=== PATIENT | female | born 1935 | race Caucasian/White ===

== ENCOUNTER 2017-12-31 16:44 | Inpatient (IN) | payer MEDICARE ==
[~2017-12-31] VITALS: Ht 172.7 cm; Wt 54.3 kg
[~2017-12-31 16:44] MED LIST: ALBU2.5V10 IH; ASPI-611 PO; CARV3.1289 PO; FOLI0.8T7 PO; FOLI1TAB16 PO; FURO40TA4 PO; INSU100V11 SQ; ISOS30TA6 PO; LEVO50TA PO; PANT-47 PO
[2017-12-31] MEDS ORDERED: ipratropium/albuterol 3ml nebule NEB ONE (17:15)
[2017-12-31] MEDS ORDERED: HYDROcodone/acetaminophen 10/325mg tab PO PRN (17:45)
[2017-12-31] MEDS ORDERED: diphenhydrAMINE 25mg capsule PO PRN (17:45)
[2017-12-31] MEDS ORDERED: HYDROcodone/acetaminophen 5mg/325mg tablet PO PRN (17:45)
[2017-12-31] MEDS ORDERED: glucagon, human recombinant 1mg kit SUBCUT PRN (17:50)
[2017-12-31] MEDS ORDERED: MESSAGE TO PHARMACY PO ONE (17:50)
[2017-12-31] MEDS ORDERED: dextrose 50%-water 50ml dispensing syringe IV PRN ×2 (17:50)
[2017-12-31] MEDS ORDERED: dextrose ORAL solution 15 GM/59 ML bottle PO PRN (17:50)
[2017-12-31 17:53] LABS: BASOPHILS % (AUTO) 0.1 % (0-1); EOSINOPHILS # (AUTO) 0.4 X10'3 (0-0.9); EOSINOPHILS % (AUTO) 1.5 % (0-6); HEMATOCRIT 32.1 % (35.0-45.0); HEMOGLOBIN 10.8 g/dl (12.0-16.0); LYMPHOCYTES # (AUTO) 0.4 X10'3 (1.1-4.8); LYMPHOCYTES % (AUTO) 1.7 % (21-51); MEAN CORPUSCULAR HEMOGLOBIN 31.8 PG (27.0-31.0); MEAN CORPUSCULAR HGB CONC 33.7 % (33.0-36.5); MEAN CORPUSCULAR VOLUME 94.4 FL (78-98); MEAN PLATELET VOLUME 9.7 FL (7.4-10.4); MONOCYTES # (AUTO) 0.6 X10'3 (0-0.9); MONOCYTES % (AUTO) 2.5 % (2-12); NEUTROPHILS # (AUTO) 22.4 X10'3 (1.8-7.7); NEUTROPHILS % (AUTO) 94.2 % (42-75); PLATELET COUNT 124 X10'3 (140-440); RED CELL DISTRIBUTION WIDTH 14.6 % (11.5-14.5); WHITE BLOOD COUNT 23.8 X10'3 (4.5-11.0)
[2017-12-31 18:12] LABS: ALANINE AMINOTRANSFERASE 40 U/L (12-78); ALBUMIN 2.9 G/DL (3.4-5.0); ALBUMIN/GLOBULIN RATIO 0.9 (1.1-1.5); ALKALINE PHOSPHATASE 94 IU/L (46-116); ANION GAP 12 (8-16); ASPARTATE AMINO TRANSFERASE 24 U/L (10-37); BILIRUBIN,TOTAL 0.7 MG/DL (0.1-1.0); BLOOD UREA NITROGEN 97 MG/DL (7-18); BUN/CREATININE RATIO 28.2 (6.6-38.0); CALCIUM 8.4 MG/DL (8.5-10.1); CHLORIDE 96 MMOL/L (99-107); CREATININE 3.44 MG/DL (0.40-0.90); GLUCOSE 433 MG/DL (70-104); MAGNESIUM 1.9 MG/DL (1.5-2.4); POTASSIUM 5.3 MMOL/L (3.5-5.1); SODIUM 134 MMOL/L (135-145); TOTAL CARBON DIOXIDE 26.1 MMOL/L (24-32); TOTAL PROTEIN 6.3 G/DL (6.4-8.2); eGFR 13 ML/MIN
[2017-12-31 18:16] LABS: HEMOGLOBIN A1C 8.1 % (4.5-6.2)
[2017-12-31] MEDS: docusate sod 100mg capsule PO SCH (19:29)
[2017-12-31] MEDS: carVEDilol 3.125mg tablet PO SCH (19:30)
[2017-12-31] MEDS: heparin, porcine 5000 units/ml vial SQ SCH (19:30)
[2017-12-31] MEDS: linezolid 600mg/300ml PREMIX 300 ML IV SCH (19:31)
[2017-12-31] MEDS: insulin glargine (Lantus) pen - multi-dose SQ SCH (20:14)
[2017-12-31] MEDS: furosemide 40mg tablet PO SCH (20:17)
[2017-12-31] MEDS ORDERED: BUDE10.22 (21:34)
[2017-12-31] MEDS ORDERED: ALBU18HF2 (21:34)
[2018-01-01] MEDS: insulin Lispro (HumaLOG) vial - multi-dose SQ SCH ×2 (07:21→13:28)
[2018-01-01 07:50] VITALS: BP 119/78
[2018-01-01] MEDS: carVEDilol 3.125mg tablet PO SCH ×2 (08:00→21:00)
[2018-01-01] MEDS ORDERED: levoFLOXACIN-Levaquin 250mg/D5 50 ML IV SCH (08:00)
[2018-01-01 08:48] LABS: BASOPHILS % (AUTO) 0 % (0-1); EOSINOPHILS % (AUTO) 0 % (0-6); HEMATOCRIT 31.4 % (35.0-45.0); HEMOGLOBIN 10.6 g/dl (12.0-16.0); LYMPHOCYTES # (AUTO) 1.2 X10'3 (1.1-4.8); LYMPHOCYTES % (AUTO) 7.2 % (21-51); MEAN CORPUSCULAR HEMOGLOBIN 31.9 PG (27.0-31.0); MEAN CORPUSCULAR HGB CONC 33.9 % (33.0-36.5); MEAN CORPUSCULAR VOLUME 93.8 FL (78-98); MEAN PLATELET VOLUME 10.1 FL (7.4-10.4); MONOCYTES # (AUTO) 0.9 X10'3 (0-0.9); MONOCYTES % (AUTO) 5.7 % (2-12); NEUTROPHILS # (AUTO) 14.2 X10'3 (1.8-7.7); NEUTROPHILS % (AUTO) 87.1 % (42-75); PLATELET COUNT 145 X10'3 (140-440); RED BLOOD COUNT 3.34 X10'6 (4.20-5.60); RED CELL DISTRIBUTION WIDTH 14.5 % (11.5-14.5); WHITE BLOOD COUNT 16.3 X10'3 (4.5-11.0)
[2018-01-01 09:03] LABS: ALBUMIN 2.7 G/DL (3.4-5.0); ANION GAP 12 (8-16); BLOOD UREA NITROGEN 116 MG/DL (7-18); BUN/CREATININE RATIO 28.9 (6.6-38.0); CALCIUM 8.2 MG/DL (8.5-10.1); CHLORIDE 97 MMOL/L (99-107); CREATININE 4.01 MG/DL (0.40-0.90); GLUCOSE 330 MG/DL (70-104); PHOSPHORUS 7.1 MG/DL (2.3-4.5); POTASSIUM 4.7 MMOL/L (3.5-5.1); SODIUM 137 MMOL/L (135-145); TOTAL CARBON DIOXIDE 27.7 MMOL/L (24-32); eGFR 11 ML/MIN
[2018-01-01 09:06] LABS: ANISOCYTOSIS 1+; PLATELET ESTIMATE NORMAL; TOTAL CELLS COUNTED 100
[2018-01-01] MEDS: levoTHYROXINE 25mcg tablet PO SCH (09:33)
[2018-01-01] MEDS: aspirin 81mg tablet.DR PO SCH (09:34)
[2018-01-01] MEDS: docusate sod 100mg capsule PO SCH ×2 (09:34→20:59)
[2018-01-01] MEDS: folic acid 1mg tablet PO SCH (09:35)
[2018-01-01] MEDS: pantoprazole 40mg Tablet.DR PO SCH (09:35)
[2018-01-01] MEDS: furosemide 40mg tablet PO SCH ×3 (09:36→21:02)
[2018-01-01] MEDS ORDERED: normal saline 1000ml 250 ML IV PRN (09:37)
[2018-01-01] MEDS: heparin, porcine 5000 units/ml vial SQ SCH ×2 (09:39→21:00)
[2018-01-01] MEDS ORDERED: LIDOcaine 1% (10mg/ml) 2ml vial SQ ONE (09:40)
[2018-01-01] MEDS ORDERED: heparin 1,000 units/ml 10ml inj IV ONE (09:40)
[2018-01-01] MEDS ORDERED: epoetin 20,000 units/ml inj IV ONE (09:40)
[2018-01-01] MEDS: isosorbide mononitrate 30mg tab.SR.24H PO SCH (09:43)
[2018-01-01] MEDS: folic acid/vitamin B complex w/vitamin C 0.8mg tablet PO SCH (09:43)
[2018-01-01] MEDS: linezolid 600mg/300ml PREMIX 300 ML IV SCH (09:49)
[2018-01-01] MEDS ORDERED: albuterol 2.5 MG/3 ML nebule NEB PRN (12:55)
[2018-01-01] MEDS ORDERED: albuterol 2.5 MG/3 ML nebule NEB SCH (13:00)
[2018-01-01] MEDS ORDERED: vancomycin/NS 1 GM ADD-VANTAGE 250 ML IV PRN (14:20)
[2018-01-01] MEDS: albuterol 2.5 MG/3 ML nebule NEB SCH ×2 (14:37→20:30)
[2018-01-01 15:00] VITALS: BP 104/41
[2018-01-01] MEDS ORDERED: vancomycin/NS 1 GM ADD-VANTAGE 250 ML IV ONE (16:00)
[2018-01-01] MEDS: dextrose ORAL solution 15 GM/59 ML bottle PO PRN (17:35)
[2018-01-01 18:00] VITALS: BP 120/49
[2018-01-01] MEDS: piperacillin-tazo 2.25gm/50ml 50 ML IV SCH (20:58)
[2018-01-01] MEDS: lactobacillus rhamnosus 10,000 MMU CELLS/CAPSULE PO SCH (20:59)
[2018-01-01] MEDS: linezolid 600mg tablet PO SCH (21:02)
[2018-01-01] MEDS: insulin glargine (Lantus) pen - multi-dose SQ SCH (21:22)
[2018-01-01 22:00] VITALS: BP 130/40
[2018-01-02] VITALS (8 sets, daily range): BP systolic 120–149; BP diastolic 30–53
[2018-01-02] MEDS: albuterol 2.5 MG/3 ML nebule NEB SCH ×4 (01:51→20:36)
[2018-01-02] MEDS ORDERED: VANCOMYCIN LEVEL IV SCH (03:00)
[2018-01-02] MEDS ORDERED: nitroGLYCERIN 0.4mg SUBLingual tab SL PRN (03:55)
[2018-01-02] MEDS: piperacillin-tazo 2.25gm/50ml 50 ML IV SCH ×4 (04:15→19:31)
[2018-01-02 05:32] LABS: BASOPHILS % (AUTO) 0.1 % (0-1); EOSINOPHILS # (AUTO) 0.2 X10'3 (0-0.9); EOSINOPHILS % (AUTO) 1.5 % (0-6); HEMATOCRIT 30.4 % (35.0-45.0); HEMOGLOBIN 10.2 g/dl (12.0-16.0); LYMPHOCYTES # (AUTO) 1.1 X10'3 (1.1-4.8); LYMPHOCYTES % (AUTO) 7.5 % (21-51); MEAN CORPUSCULAR HGB CONC 33.6 % (33.0-36.5); MEAN CORPUSCULAR VOLUME 95.3 FL (78-98); MEAN PLATELET VOLUME 9.8 FL (7.4-10.4); MONOCYTES # (AUTO) 1.5 X10'3 (0-0.9); MONOCYTES % (AUTO) 9.5 % (2-12); NEUTROPHILS # (AUTO) 12.5 X10'3 (1.8-7.7); NEUTROPHILS % (AUTO) 81.4 % (42-75); PLATELET COUNT 132 X10'3 (140-440); RED BLOOD COUNT 3.19 X10'6 (4.20-5.60); RED CELL DISTRIBUTION WIDTH 14.3 % (11.5-14.5); WHITE BLOOD COUNT 15.3 X10'3 (4.5-11.0)
[2018-01-02 06:02] LABS: PLATELET ESTIMATE NORMAL; TOTAL CELLS COUNTED 100
[2018-01-02 06:03] LABS: ANISOCYTOSIS 1+; TOXIC GRANULATION 1+
[2018-01-02 06:21] LABS: ALBUMIN 2.5 G/DL (3.4-5.0); ANION GAP 10 (8-16); BLOOD UREA NITROGEN 42 MG/DL (7-18); BUN/CREATININE RATIO 19.3 (6.6-38.0); CALCIUM 7.8 MG/DL (8.5-10.1); CHLORIDE 99 MMOL/L (99-107); CREATININE 2.18 MG/DL (0.40-0.90); GLUCOSE 206 MG/DL (70-104); MAGNESIUM 1.8 MG/DL (1.5-2.4); PHOSPHORUS 3.5 MG/DL (2.3-4.5); POTASSIUM 4.4 MMOL/L (3.5-5.1); SODIUM 137 MMOL/L (135-145); TOTAL CARBON DIOXIDE 28.5 MMOL/L (24-32); eGFR 22 ML/MIN
[2018-01-02] MEDS: docusate sod 100mg capsule PO SCH ×2 (08:50→19:31)
[2018-01-02] MEDS: pantoprazole 40mg Tablet.DR PO SCH (08:50)
[2018-01-02] MEDS: folic acid 1mg tablet PO SCH (08:50)
[2018-01-02] MEDS: folic acid/vitamin B complex w/vitamin C 0.8mg tablet PO SCH (08:50)
[2018-01-02] MEDS: linezolid 600mg tablet PO SCH ×2 (08:51→19:31)
[2018-01-02] MEDS: lactobacillus rhamnosus 10,000 MMU CELLS/CAPSULE PO SCH ×2 (08:51→19:31)
[2018-01-02] MEDS: levoTHYROXINE 25mcg tablet PO SCH (08:51)
[2018-01-02] MEDS: aspirin 81mg tablet.DR PO SCH (08:52)
[2018-01-02] MEDS: heparin, porcine 5000 units/ml vial SQ SCH ×2 (08:52→19:30)
[2018-01-02] MEDS: carVEDilol 3.125mg tablet PO SCH ×2 (08:54→19:31)
[2018-01-02] MEDS: furosemide 40mg tablet PO SCH ×3 (08:54→21:00)
[2018-01-02] MEDS: isosorbide mononitrate 30mg tab.SR.24H PO SCH (08:55)
[2018-01-02] MEDS: budesonide 0.5mg/2ml UD nebule IH SCH ×2 (08:56→20:37)
[2018-01-02] MEDS: ondansetron/PF 4mg/2ml inj IV PRN (10:18)
[2018-01-02] MEDS: insulin Lispro (HumaLOG) vial - multi-dose SQ SCH ×2 (11:56→19:04)
[2018-01-02] MEDS: insulin glargine (Lantus) pen - multi-dose SQ SCH (21:00)
[2018-01-03] MEDS: piperacillin-tazo 2.25gm/50ml 50 ML IV SCH ×4 (02:16→19:52)
[2018-01-03 03:00] VITALS: BP 108/22
[2018-01-03] MEDS: albuterol 2.5 MG/3 ML nebule NEB SCH ×4 (03:10→22:41)
[2018-01-03 05:22] LABS: BASOPHILS % (AUTO) 0.1 % (0-1); EOSINOPHILS # (AUTO) 0.2 X10'3 (0-0.9); EOSINOPHILS % (AUTO) 1.9 % (0-6); HEMATOCRIT 30.7 % (35.0-45.0); HEMOGLOBIN 10.4 g/dl (12.0-16.0); LYMPHOCYTES # (AUTO) 1.7 X10'3 (1.1-4.8); MEAN CORPUSCULAR HGB CONC 33.8 % (33.0-36.5); MEAN CORPUSCULAR VOLUME 94.7 FL (78-98); MEAN PLATELET VOLUME 9.8 FL (7.4-10.4); MONOCYTES # (AUTO) 1.3 X10'3 (0-0.9); MONOCYTES % (AUTO) 11.1 % (2-12); NEUTROPHILS # (AUTO) 8.1 X10'3 (1.8-7.7); NEUTROPHILS % (AUTO) 71.9 % (42-75); PLATELET COUNT 146 X10'3 (140-440); RED BLOOD COUNT 3.24 X10'6 (4.20-5.60); RED CELL DISTRIBUTION WIDTH 14.3 % (11.5-14.5); WHITE BLOOD COUNT 11.3 X10'3 (4.5-11.0)
[2018-01-03 06:14] LABS: PLATELET ESTIMATE NORMAL; TOTAL CELLS COUNTED 100
[2018-01-03 06:15] LABS: ANISOCYTOSIS 1+; LARGE PLATELETS FEW
[2018-01-03 06:25] LABS: ALBUMIN 2.3 G/DL (3.4-5.0); ANION GAP 12 (8-16); BLOOD UREA NITROGEN 51 MG/DL (7-18); BUN/CREATININE RATIO 16.6 (6.6-38.0); CALCIUM 7.9 MG/DL (8.5-10.1); CHLORIDE 99 MMOL/L (99-107); CREATININE 3.08 MG/DL (0.40-0.90); GLUCOSE 122 MG/DL (70-104); MAGNESIUM 1.8 MG/DL (1.5-2.4); PHOSPHORUS 4.8 MG/DL (2.3-4.5); POTASSIUM 4.1 MMOL/L (3.5-5.1); SODIUM 139 MMOL/L (135-145); TOTAL CARBON DIOXIDE 27.8 MMOL/L (24-32); eGFR 15 ML/MIN
[2018-01-03 07:00] VITALS: BP 98/45
[2018-01-03] MEDS: docusate sod 100mg capsule PO SCH ×2 (07:20→20:00)
[2018-01-03] MEDS: aspirin 81mg tablet.DR PO SCH (07:20)
[2018-01-03] MEDS: linezolid 600mg tablet PO SCH ×2 (07:20→19:52)
[2018-01-03] MEDS: levoTHYROXINE 25mcg tablet PO SCH (07:20)
[2018-01-03] MEDS: lactobacillus rhamnosus 10,000 MMU CELLS/CAPSULE PO SCH ×2 (07:20→19:52)
[2018-01-03] MEDS: folic acid 1mg tablet PO SCH (07:20)
[2018-01-03] MEDS: folic acid/vitamin B complex w/vitamin C 0.8mg tablet PO SCH (07:20)
[2018-01-03] MEDS: isosorbide mononitrate 30mg tab.SR.24H PO SCH (07:20)
[2018-01-03] MEDS: furosemide 40mg tablet PO SCH ×3 (07:20→21:00)
[2018-01-03] MEDS: pantoprazole 40mg Tablet.DR PO SCH (07:20)
[2018-01-03] MEDS: carVEDilol 3.125mg tablet PO SCH ×2 (07:20→19:52)
[2018-01-03] MEDS: heparin, porcine 5000 units/ml vial SQ SCH ×2 (07:21→20:00)
[2018-01-03] MEDS: budesonide 0.5mg/2ml UD nebule IH SCH ×2 (10:37→22:41)
[2018-01-03 11:00] VITALS: BP 136/39
[2018-01-03] MEDS: insulin Lispro (HumaLOG) vial - multi-dose SQ SCH ×2 (13:21→18:29)
[2018-01-03 15:00] VITALS: BP 131/37
[2018-01-03] MEDS ORDERED: normal saline 1000ml 250 ML IV PRN (18:03)
[2018-01-03] MEDS ORDERED: epoetin 20,000 units/ml inj IV ONE (18:05)
[2018-01-03] MEDS ORDERED: heparin 1,000 units/ml 10ml inj IV ONE (18:05)
[2018-01-03] MEDS ORDERED: LIDOcaine 1% (10mg/ml) 2ml vial SQ ONE (18:05)
[2018-01-03 19:00] VITALS: BP 120/44
[2018-01-03] MEDS: insulin glargine (Lantus) pen - multi-dose SQ SCH (20:56)
[2018-01-03 23:00] VITALS: BP 131/38
[2018-01-04] MEDS: albuterol 2.5 MG/3 ML nebule NEB SCH ×4 (02:38→21:30)
[2018-01-04] MEDS: piperacillin-tazo 2.25gm/50ml 50 ML IV SCH ×4 (02:39→21:57)
[2018-01-04 03:00] VITALS: BP 134/51
[2018-01-04] MEDS: ondansetron/PF 4mg/2ml inj IV PRN ×3 (03:19→21:52)
[2018-01-04 05:49] LABS: BASOPHILS % (AUTO) 0 % (0-1); EOSINOPHILS # (AUTO) 0.2 X10'3 (0-0.9); EOSINOPHILS % (AUTO) 1.7 % (0-6); HEMATOCRIT 29.4 % (35.0-45.0); HEMOGLOBIN 10.1 g/dl (12.0-16.0); LYMPHOCYTES # (AUTO) 1.1 X10'3 (1.1-4.8); LYMPHOCYTES % (AUTO) 10.3 % (21-51); MEAN CORPUSCULAR HEMOGLOBIN 32.5 PG (27.0-31.0); MEAN CORPUSCULAR HGB CONC 34.4 % (33.0-36.5); MEAN CORPUSCULAR VOLUME 94.5 FL (78-98); MEAN PLATELET VOLUME 9.7 FL (7.4-10.4); MONOCYTES # (AUTO) 1.3 X10'3 (0-0.9); MONOCYTES % (AUTO) 11.9 % (2-12); NEUTROPHILS # (AUTO) 8.4 X10'3 (1.8-7.7); NEUTROPHILS % (AUTO) 76.1 % (42-75); PLATELET COUNT 138 X10'3 (140-440); RED BLOOD COUNT 3.11 X10'6 (4.20-5.60); RED CELL DISTRIBUTION WIDTH 14.3 % (11.5-14.5)
[2018-01-04 06:00] VITALS: BP 126/45
[2018-01-04 06:11] LABS: ALBUMIN 2.2 G/DL (3.4-5.0); ANION GAP 14 (8-16); BLOOD UREA NITROGEN 58 MG/DL (7-18); BUN/CREATININE RATIO 15.1 (6.6-38.0); CALCIUM 8.1 MG/DL (8.5-10.1); CHLORIDE 97 MMOL/L (99-107); CREATININE 3.84 MG/DL (0.40-0.90); GLUCOSE 136 MG/DL (70-104); MAGNESIUM 1.8 MG/DL (1.5-2.4); PHOSPHORUS 5.5 MG/DL (2.3-4.5); SODIUM 137 MMOL/L (135-145); TOTAL CARBON DIOXIDE 26.2 MMOL/L (24-32); eGFR 11 ML/MIN
[2018-01-04] MEDS: docusate sod 100mg capsule PO SCH ×2 (07:13→21:59)
[2018-01-04] MEDS: linezolid 600mg tablet PO SCH ×2 (07:13→21:58)
[2018-01-04] MEDS: heparin, porcine 5000 units/ml vial SQ SCH ×2 (07:13→21:58)
[2018-01-04] MEDS: aspirin 81mg tablet.DR PO SCH (07:14)
[2018-01-04] MEDS: lactobacillus rhamnosus 10,000 MMU CELLS/CAPSULE PO SCH ×2 (07:14→21:59)
[2018-01-04] MEDS: pantoprazole 40mg Tablet.DR PO SCH (07:14)
[2018-01-04] MEDS: carVEDilol 3.125mg tablet PO SCH ×2 (07:14→21:59)
[2018-01-04] MEDS: folic acid/vitamin B complex w/vitamin C 0.8mg tablet PO SCH (07:14)
[2018-01-04] MEDS: folic acid 1mg tablet PO SCH (07:14)
[2018-01-04] MEDS: isosorbide mononitrate 30mg tab.SR.24H PO SCH (07:14)
[2018-01-04] MEDS: levoTHYROXINE 25mcg tablet PO SCH (07:14)
[2018-01-04] MEDS: furosemide 40mg tablet PO SCH ×3 (07:14→22:49)
[2018-01-04] MEDS: budesonide 0.5mg/2ml UD nebule IH SCH ×2 (07:56→21:29)
[2018-01-04] MEDS: insulin Lispro (HumaLOG) vial - multi-dose SQ SCH (08:15)
[2018-01-04] MEDS ORDERED: heparin 1,000 units/ml 10ml inj IV ONE (09:15)
[2018-01-04] MEDS ORDERED: normal saline 1000ml 250 ML IV PRN (09:15)
[2018-01-04] MEDS ORDERED: epoetin 20,000 units/ml inj IV ONE (09:15)
[2018-01-04] MEDS ORDERED: LIDOcaine 1% (10mg/ml) 2ml vial SQ ONE (09:55)
[2018-01-04 11:00] VITALS: BP 129/37
[2018-01-04 15:00] VITALS: BP 129/44
[2018-01-04 19:00] VITALS: BP 130/43
[2018-01-04] MEDS: insulin glargine (Lantus) pen - multi-dose SQ SCH (21:51)
[2018-01-04 23:00] VITALS: BP 105/44
[2018-01-05] VITALS (10 sets, daily range): BP systolic 111–139; BP diastolic 37–68
[2018-01-05] MEDS: piperacillin-tazo 2.25gm/50ml 50 ML IV SCH ×4 (02:12→19:47)
[2018-01-05] MEDS: albuterol 2.5 MG/3 ML nebule NEB SCH ×4 (02:25→20:20)
[2018-01-05] MEDS: ondansetron/PF 4mg/2ml inj IV PRN (04:22)
[2018-01-05 05:37] LABS: BASOPHILS % (AUTO) 0.2 % (0-1); EOSINOPHILS % (AUTO) 0.2 % (0-6); HEMATOCRIT 29.3 % (35.0-45.0); LYMPHOCYTES # (AUTO) 1.3 X10'3 (1.1-4.8); LYMPHOCYTES % (AUTO) 12.1 % (21-51); MEAN CORPUSCULAR HEMOGLOBIN 32.3 PG (27.0-31.0); MEAN CORPUSCULAR HGB CONC 34.3 % (33.0-36.5); MEAN CORPUSCULAR VOLUME 94.2 FL (78-98); MEAN PLATELET VOLUME 9.3 FL (7.4-10.4); MONOCYTES # (AUTO) 1.3 X10'3 (0-0.9); MONOCYTES % (AUTO) 11.7 % (2-12); NEUTROPHILS # (AUTO) 8.1 X10'3 (1.8-7.7); NEUTROPHILS % (AUTO) 75.8 % (42-75); PLATELET COUNT 141 X10'3 (140-440); RED BLOOD COUNT 3.11 X10'6 (4.20-5.60); RED CELL DISTRIBUTION WIDTH 14.3 % (11.5-14.5); WHITE BLOOD COUNT 10.7 X10'3 (4.5-11.0)
[2018-01-05 05:58] LABS: ALBUMIN 2.1 G/DL (3.4-5.0); ANION GAP 10 (8-16); BLOOD UREA NITROGEN 27 MG/DL (7-18); BUN/CREATININE RATIO 10.8 (6.6-38.0); CHLORIDE 99 MMOL/L (99-107); CREATININE 2.51 MG/DL (0.40-0.90); GLUCOSE 178 MG/DL (70-104); MAGNESIUM 1.8 MG/DL (1.5-2.4); PHOSPHORUS 3.7 MG/DL (2.3-4.5); POTASSIUM 3.7 MMOL/L (3.5-5.1); SODIUM 136 MMOL/L (135-145); TOTAL CARBON DIOXIDE 26.8 MMOL/L (24-32); eGFR 18 ML/MIN
[2018-01-05] MEDS: budesonide 0.5mg/2ml UD nebule IH SCH ×2 (09:00→20:19)
[2018-01-05] MEDS: isosorbide mononitrate 30mg tab.SR.24H PO SCH (09:03)
[2018-01-05] MEDS: levoTHYROXINE 25mcg tablet PO SCH (09:04)
[2018-01-05] MEDS: folic acid 1mg tablet PO SCH (09:05)
[2018-01-05] MEDS: aspirin 81mg tablet.DR PO SCH (09:05)
[2018-01-05] MEDS: docusate sod 100mg capsule PO SCH ×2 (09:05→19:35)
[2018-01-05] MEDS: pantoprazole 40mg Tablet.DR PO SCH (09:06)
[2018-01-05] MEDS: linezolid 600mg tablet PO SCH ×2 (09:06→19:36)
[2018-01-05] MEDS: folic acid/vitamin B complex w/vitamin C 0.8mg tablet PO SCH (09:07)
[2018-01-05] MEDS: furosemide 40mg tablet PO SCH ×3 (09:12→21:27)
[2018-01-05] MEDS: lactobacillus rhamnosus 10,000 MMU CELLS/CAPSULE PO SCH ×2 (09:13→19:36)
[2018-01-05] MEDS: heparin, porcine 5000 units/ml vial SQ SCH ×2 (09:21→19:37)
[2018-01-05] MEDS: carVEDilol 3.125mg tablet PO SCH ×2 (09:27→19:49)
[2018-01-05] MEDS: insulin Lispro (HumaLOG) vial - multi-dose SQ SCH ×3 (09:50→19:44)
[2018-01-05] MEDS: insulin glargine (Lantus) pen - multi-dose SQ SCH (21:31)
[2018-01-06] VITALS (9 sets, daily range): BP systolic 104–134; BP diastolic 40–60
[2018-01-06] MEDS: dextrose ORAL solution 15 GM/59 ML bottle PO PRN (01:00)
[2018-01-06] MEDS: piperacillin-tazo 2.25gm/50ml 50 ML IV SCH ×3 (02:00→14:00)
[2018-01-06] MEDS: albuterol 2.5 MG/3 ML nebule NEB SCH ×4 (02:19→20:34)
[2018-01-06] MEDS: folic acid 1mg tablet PO SCH (07:44)
[2018-01-06] MEDS: docusate sod 100mg capsule PO SCH ×2 (07:44→19:31)
[2018-01-06] MEDS: lactobacillus rhamnosus 10,000 MMU CELLS/CAPSULE PO SCH ×2 (07:44→19:32)
[2018-01-06] MEDS: folic acid/vitamin B complex w/vitamin C 0.8mg tablet PO SCH (07:44)
[2018-01-06] MEDS: pantoprazole 40mg Tablet.DR PO SCH (07:44)
[2018-01-06] MEDS: isosorbide mononitrate 30mg tab.SR.24H PO SCH (07:44)
[2018-01-06] MEDS: carVEDilol 3.125mg tablet PO SCH ×2 (07:45→19:32)
[2018-01-06] MEDS: furosemide 40mg tablet PO SCH ×3 (07:45→21:48)
[2018-01-06] MEDS: levoTHYROXINE 25mcg tablet PO SCH (07:45)
[2018-01-06] MEDS: aspirin 81mg tablet.DR PO SCH (07:45)
[2018-01-06] MEDS: heparin, porcine 5000 units/ml vial SQ SCH ×2 (07:47→19:32)
[2018-01-06] MEDS ORDERED: normal saline 1000ml 250 ML IV PRN (08:00)
[2018-01-06] MEDS: linezolid 600mg tablet PO SCH ×2 (08:00→19:31)
[2018-01-06] MEDS ORDERED: LIDOcaine 1% (10mg/ml) 2ml vial SQ ONE (08:00)
[2018-01-06] MEDS ORDERED: epoetin 20,000 units/ml inj IV ONE (08:00)
[2018-01-06] MEDS ORDERED: heparin 1,000 units/ml 10ml inj IV ONE (08:00)
[2018-01-06] MEDS: budesonide 0.5mg/2ml UD nebule IH SCH ×2 (08:47→20:34)
[2018-01-06] MEDS: insulin Lispro (HumaLOG) vial - multi-dose SQ SCH ×2 (10:01→19:36)
[2018-01-06] MEDS ORDERED: LIDOcaine 1% (10mg/ml) 2ml vial ONE (10:16)
[2018-01-06 11:28] LABS: BASOPHILS % (AUTO) 0.1 % (0-1); EOSINOPHILS # (AUTO) 0.2 X10'3 (0-0.9); EOSINOPHILS % (AUTO) 1.4 % (0-6); HEMOGLOBIN 9.2 g/dl (12.0-16.0); LYMPHOCYTES # (AUTO) 1.1 X10'3 (1.1-4.8); LYMPHOCYTES % (AUTO) 9.8 % (21-51); MEAN CORPUSCULAR HEMOGLOBIN 31.9 PG (27.0-31.0); MEAN CORPUSCULAR HGB CONC 34.3 % (33.0-36.5); MONOCYTES # (AUTO) 1.1 X10'3 (0-0.9); MONOCYTES % (AUTO) 9.9 % (2-12); NEUTROPHILS # (AUTO) 8.5 X10'3 (1.8-7.7); NEUTROPHILS % (AUTO) 78.8 % (42-75); PLATELET COUNT 140 X10'3 (140-440); RED CELL DISTRIBUTION WIDTH 14.5 % (11.5-14.5); WHITE BLOOD COUNT 10.8 X10'3 (4.5-11.0)
[2018-01-06] MEDS: amoxicillin 250mg capsule PO SCH (21:48)
[2018-01-06] MEDS: insulin glargine (Lantus) pen - multi-dose SQ SCH (21:52)
[2018-01-07] MEDS: albuterol 2.5 MG/3 ML nebule NEB SCH ×4 (02:14→21:01)
[2018-01-07 02:35] VITALS: BP 109/46
[2018-01-07 06:00] VITALS: BP 113/43
[2018-01-07] MEDS: budesonide 0.5mg/2ml UD nebule IH SCH ×2 (08:49→21:00)
[2018-01-07 09:08] LABS: OCCULT BLOOD STOOL NEGATIVE (Neg)
[2018-01-07 09:24] LABS: HEMATOCRIT 28.5 % (35.0-45.0); HEMOGLOBIN 9.6 g/dl (12.0-16.0); MEAN CORPUSCULAR HEMOGLOBIN 31.8 PG (27.0-31.0); MEAN CORPUSCULAR HGB CONC 33.7 % (33.0-36.5); MEAN CORPUSCULAR VOLUME 94.5 FL (78-98); MEAN PLATELET VOLUME 8.4 FL (7.4-10.4); PLATELET COUNT 138 X10'3 (140-440); RED BLOOD COUNT 3.01 X10'6 (4.20-5.60); RED CELL DISTRIBUTION WIDTH 14.1 % (11.5-14.5); WHITE BLOOD COUNT 7.9 X10'3 (4.5-11.0)
[2018-01-07] MEDS: levoTHYROXINE 25mcg tablet PO SCH (10:18)
[2018-01-07] MEDS: furosemide 40mg tablet PO SCH ×3 (10:20→20:57)
[2018-01-07] MEDS: carVEDilol 3.125mg tablet PO SCH ×2 (10:20→20:56)
[2018-01-07] MEDS: linezolid 600mg tablet PO SCH ×2 (10:21→20:55)
[2018-01-07] MEDS: heparin, porcine 5000 units/ml vial SQ SCH ×2 (10:22→21:04)
[2018-01-07] MEDS: folic acid/vitamin B complex w/vitamin C 0.8mg tablet PO SCH (10:23)
[2018-01-07] MEDS: folic acid 1mg tablet PO SCH (10:23)
[2018-01-07] MEDS: pantoprazole 40mg Tablet.DR PO SCH (10:23)
[2018-01-07] MEDS: lactobacillus rhamnosus 10,000 MMU CELLS/CAPSULE PO SCH ×2 (10:23→20:55)
[2018-01-07] MEDS: aspirin 81mg tablet.DR PO SCH (10:23)
[2018-01-07] MEDS: docusate sod 100mg capsule PO SCH ×2 (10:23→20:56)
[2018-01-07] MEDS: amoxicillin 250mg capsule PO SCH ×2 (10:23→20:55)
[2018-01-07] MEDS: isosorbide mononitrate 30mg tab.SR.24H PO SCH (10:23)
[2018-01-07 11:00] VITALS: BP 118/43
[2018-01-07] MEDS: insulin Lispro (HumaLOG) vial - multi-dose SQ SCH ×2 (13:14→19:35)
[2018-01-07] MEDS ORDERED: meclizine 12.5mg tablet PO PRN (15:45)
[2018-01-07 19:00] VITALS: BP 131/50
[2018-01-07] MEDS: insulin glargine (Lantus) pen - multi-dose SQ SCH (21:16)
[2018-01-07 23:00] VITALS: BP 116/55
[2018-01-08] VITALS (11 sets, daily range): BP systolic 97–147; BP diastolic 46–76
[2018-01-08] MEDS: albuterol 2.5 MG/3 ML nebule NEB SCH ×5 (02:00→20:01)
[2018-01-08] MEDS ORDERED: normal saline 1000ml 250 ML IV PRN (08:00)
[2018-01-08] MEDS: carVEDilol 3.125mg tablet PO SCH ×2 (08:00→21:56)
[2018-01-08] MEDS ORDERED: epoetin 20,000 units/ml inj IV ONE (08:00)
[2018-01-08] MEDS ORDERED: LIDOcaine 1% (10mg/ml) 2ml vial SQ ONE (08:00)
[2018-01-08] MEDS ORDERED: heparin 1,000 units/ml 10ml inj IV ONE (08:00)
[2018-01-08] MEDS: lactobacillus rhamnosus 10,000 MMU CELLS/CAPSULE PO SCH ×2 (08:32→21:52)
[2018-01-08] MEDS: docusate sod 100mg capsule PO SCH ×2 (08:33→20:00)
[2018-01-08] MEDS: folic acid 1mg tablet PO SCH (08:33)
[2018-01-08] MEDS: aspirin 81mg tablet.DR PO SCH (08:33)
[2018-01-08] MEDS: pantoprazole 40mg Tablet.DR PO SCH (08:33)
[2018-01-08] MEDS: linezolid 600mg tablet PO SCH (08:33)
[2018-01-08] MEDS: folic acid/vitamin B complex w/vitamin C 0.8mg tablet PO SCH (08:33)
[2018-01-08] MEDS: amoxicillin 250mg capsule PO SCH (08:33)
[2018-01-08] MEDS: heparin, porcine 5000 units/ml vial SQ SCH ×2 (08:34→21:52)
[2018-01-08] MEDS: levoTHYROXINE 25mcg tablet PO SCH (08:42)
[2018-01-08] MEDS: furosemide 40mg tablet PO SCH ×3 (08:43→21:52)
[2018-01-08] MEDS: insulin Lispro (HumaLOG) vial - multi-dose SQ SCH (08:44)
[2018-01-08] MEDS: budesonide 0.5mg/2ml UD nebule IH SCH ×2 (09:00→20:08)
[2018-01-08 12:21] LABS: BASOPHILS % (AUTO) 0.4 % (0-1); EOSINOPHILS % (AUTO) 0 % (0-6); HEMATOCRIT 29.5 % (35.0-45.0); HEMOGLOBIN 10.1 g/dl (12.0-16.0); LYMPHOCYTES # (AUTO) 1.4 X10'3 (1.1-4.8); LYMPHOCYTES % (AUTO) 15.3 % (21-51); MEAN CORPUSCULAR HEMOGLOBIN 32.1 PG (27.0-31.0); MEAN CORPUSCULAR VOLUME 94.5 FL (78-98); MEAN PLATELET VOLUME 8.2 FL (7.4-10.4); MONOCYTES # (AUTO) 0.9 X10'3 (0-0.9); MONOCYTES % (AUTO) 9.2 % (2-12); NEUTROPHILS % (AUTO) 75.1 % (42-75); PLATELET COUNT 138 X10'3 (140-440); RED BLOOD COUNT 3.13 X10'6 (4.20-5.60); RED CELL DISTRIBUTION WIDTH 14.3 % (11.5-14.5); WHITE BLOOD COUNT 9.4 X10'3 (4.5-11.0)
[2018-01-08 12:51] LABS: ALANINE AMINOTRANSFERASE 27 U/L (12-78); ALBUMIN 2.2 G/DL (3.4-5.0); ALBUMIN/GLOBULIN RATIO 0.5 (1.1-1.5); ALKALINE PHOSPHATASE 73 IU/L (46-116); ANION GAP 12 (8-16); ASPARTATE AMINO TRANSFERASE 15 U/L (10-37); BILIRUBIN,TOTAL 0.4 MG/DL (0.1-1.0); BLOOD UREA NITROGEN 45 MG/DL (7-18); BUN/CREATININE RATIO 11.7 (6.6-38.0); CALCIUM 8.6 MG/DL (8.5-10.1); CHLORIDE 94 MMOL/L (99-107); CREATININE 3.84 MG/DL (0.40-0.90); GLUCOSE 122 MG/DL (70-104); MAGNESIUM 1.7 MG/DL (1.5-2.4); PHOSPHORUS 4.1 MG/DL (2.3-4.5); SODIUM 131 MMOL/L (135-145); TOTAL CARBON DIOXIDE 24.6 MMOL/L (24-32); TOTAL PROTEIN 6.4 G/DL (6.4-8.2); eGFR 11 ML/MIN
[2018-01-08] MEDS: isosorbide mononitrate 30mg tab.SR.24H PO SCH (13:07)
[2018-01-08] MEDS ORDERED: MIDAZolam 5mg/ml 2ml vial ONE (14:27)
[2018-01-08] MEDS ORDERED: LIDOcaine Viscous 15ml cup ONE (14:27)
[2018-01-08] MEDS ORDERED: fentaNYL/PF 50MCG/1 ML 2ML syringe ONE (14:27)
[2018-01-08] MEDS: insulin glargine (Lantus) pen - multi-dose SQ SCH (21:00)
[2018-01-09] MEDS: albuterol 2.5 MG/3 ML nebule NEB SCH ×4 (02:11→20:36)
[2018-01-09 03:00] VITALS: BP 102/53
[2018-01-09 05:48] LABS: BASOPHILS % (AUTO) 0.4 % (0-1); EOSINOPHILS # (AUTO) 0.1 X10'3 (0-0.9); HEMATOCRIT 25.6 % (35.0-45.0); HEMOGLOBIN 8.9 g/dl (12.0-16.0); LYMPHOCYTES # (AUTO) 0.8 X10'3 (1.1-4.8); LYMPHOCYTES % (AUTO) 11.5 % (21-51); MEAN CORPUSCULAR HEMOGLOBIN 32.2 PG (27.0-31.0); MEAN CORPUSCULAR HGB CONC 34.5 % (33.0-36.5); MEAN CORPUSCULAR VOLUME 93.3 FL (78-98); MEAN PLATELET VOLUME 8.1 FL (7.4-10.4); MONOCYTES # (AUTO) 0.6 X10'3 (0-0.9); MONOCYTES % (AUTO) 9.2 % (2-12); NEUTROPHILS # (AUTO) 5.4 X10'3 (1.8-7.7); NEUTROPHILS % (AUTO) 76.9 % (42-75); PLATELET COUNT 119 X10'3 (140-440); RED BLOOD COUNT 2.75 X10'6 (4.20-5.60); RED CELL DISTRIBUTION WIDTH 14.3 % (11.5-14.5)
[2018-01-09 06:00] VITALS: BP 121/43
[2018-01-09 06:51] LABS: ALANINE AMINOTRANSFERASE 24 U/L (12-78); ALBUMIN/GLOBULIN RATIO 0.6 (1.1-1.5); ALKALINE PHOSPHATASE 65 IU/L (46-116); ANION GAP 7 (8-16); ASPARTATE AMINO TRANSFERASE 13 U/L (10-37); BILIRUBIN,TOTAL 0.3 MG/DL (0.1-1.0); BLOOD UREA NITROGEN 25 MG/DL (7-18); BUN/CREATININE RATIO 11.2 (6.6-38.0); CHLORIDE 101 MMOL/L (99-107); CREATININE 2.24 MG/DL (0.40-0.90); GLUCOSE 141 MG/DL (70-104); MAGNESIUM 1.7 MG/DL (1.5-2.4); POTASSIUM 3.9 MMOL/L (3.5-5.1); SODIUM 137 MMOL/L (135-145); TOTAL CARBON DIOXIDE 29.3 MMOL/L (24-32); TOTAL PROTEIN 5.6 G/DL (6.4-8.2); eGFR 21 ML/MIN
[2018-01-09] MEDS: budesonide 0.5mg/2ml UD nebule IH SCH ×2 (07:47→20:36)
[2018-01-09] MEDS: insulin Lispro (HumaLOG) vial - multi-dose SQ SCH ×2 (08:47→13:44)
[2018-01-09] MEDS: heparin, porcine 5000 units/ml vial SQ SCH ×2 (08:49→20:42)
[2018-01-09] MEDS: docusate sod 100mg capsule PO SCH ×2 (08:50→20:42)
[2018-01-09] MEDS: lactobacillus rhamnosus 10,000 MMU CELLS/CAPSULE PO SCH ×2 (08:50→20:42)
[2018-01-09] MEDS: folic acid 1mg tablet PO SCH (08:50)
[2018-01-09] MEDS: folic acid/vitamin B complex w/vitamin C 0.8mg tablet PO SCH (08:50)
[2018-01-09] MEDS: isosorbide mononitrate 30mg tab.SR.24H PO SCH (08:50)
[2018-01-09] MEDS: carVEDilol 3.125mg tablet PO SCH ×2 (08:50→20:42)
[2018-01-09] MEDS: aspirin 81mg tablet.DR PO SCH (08:50)
[2018-01-09] MEDS: furosemide 40mg tablet PO SCH ×3 (08:50→20:42)
[2018-01-09] MEDS: pantoprazole 40mg Tablet.DR PO SCH (08:51)
[2018-01-09] MEDS: levoTHYROXINE 25mcg tablet PO SCH (08:53)
[2018-01-09 11:00] VITALS: BP 111/38
[2018-01-09 15:00] VITALS: BP 117/39
[2018-01-09 19:00] VITALS: BP 144/49
[2018-01-09] MEDS: insulin glargine (Lantus) pen - multi-dose SQ SCH (21:01)
[2018-01-09 22:40] VITALS: BP 120/43
[2018-01-10] VITALS (7 sets, daily range): BP systolic 119–133; BP diastolic 29–47
[2018-01-10] MEDS: albuterol 2.5 MG/3 ML nebule NEB SCH ×4 (03:22→19:54)
[2018-01-10 06:27] LABS: BASOPHILS % (AUTO) 0.5 % (0-1); EOSINOPHILS # (AUTO) 0.2 X10'3 (0-0.9); EOSINOPHILS % (AUTO) 2.8 % (0-6); HEMATOCRIT 23.8 % (35.0-45.0); HEMOGLOBIN 8.2 g/dl (12.0-16.0); LYMPHOCYTES # (AUTO) 1.2 X10'3 (1.1-4.8); LYMPHOCYTES % (AUTO) 16.4 % (21-51); MEAN CORPUSCULAR HEMOGLOBIN 32.2 PG (27.0-31.0); MEAN CORPUSCULAR HGB CONC 34.3 % (33.0-36.5); MONOCYTES % (AUTO) 13.1 % (2-12); NEUTROPHILS # (AUTO) 4.9 X10'3 (1.8-7.7); NEUTROPHILS % (AUTO) 67.2 % (42-75); PLATELET COUNT 101 X10'3 (140-440); RED BLOOD COUNT 2.53 X10'6 (4.20-5.60); RED CELL DISTRIBUTION WIDTH 14.3 % (11.5-14.5); WHITE BLOOD COUNT 7.3 X10'3 (4.5-11.0)
[2018-01-10 07:01] LABS: ALANINE AMINOTRANSFERASE 23 U/L (12-78); ALBUMIN 2.1 G/DL (3.4-5.0); ALBUMIN/GLOBULIN RATIO 0.6 (1.1-1.5); ALKALINE PHOSPHATASE 75 IU/L (46-116); ANION GAP 7 (8-16); ASPARTATE AMINO TRANSFERASE 11 U/L (10-37); BILIRUBIN,TOTAL 0.4 MG/DL (0.1-1.0); BLOOD UREA NITROGEN 43 MG/DL (7-18); BUN/CREATININE RATIO 13.7 (6.6-38.0); CALCIUM 8.1 MG/DL (8.5-10.1); CHLORIDE 99 MMOL/L (99-107); CREATININE 3.13 MG/DL (0.40-0.90); GLUCOSE 111 MG/DL (70-104); MAGNESIUM 1.7 MG/DL (1.5-2.4); POTASSIUM 4.1 MMOL/L (3.5-5.1); SODIUM 135 MMOL/L (135-145); TOTAL CARBON DIOXIDE 28.8 MMOL/L (24-32); TOTAL PROTEIN 5.6 G/DL (6.4-8.2); eGFR 14 ML/MIN
[2018-01-10] MEDS: budesonide 0.5mg/2ml UD nebule IH SCH ×2 (07:34→19:55)
[2018-01-10] MEDS: docusate sod 100mg capsule PO SCH ×2 (08:24→20:45)
[2018-01-10] MEDS: folic acid/vitamin B complex w/vitamin C 0.8mg tablet PO SCH (08:24)
[2018-01-10] MEDS: levoTHYROXINE 25mcg tablet PO SCH (08:24)
[2018-01-10] MEDS: aspirin 81mg tablet.DR PO SCH (08:24)
[2018-01-10] MEDS: lactobacillus rhamnosus 10,000 MMU CELLS/CAPSULE PO SCH ×2 (08:24→20:54)
[2018-01-10] MEDS: carVEDilol 3.125mg tablet PO SCH ×2 (08:24→20:45)
[2018-01-10] MEDS: isosorbide mononitrate 30mg tab.SR.24H PO SCH (08:24)
[2018-01-10] MEDS: furosemide 40mg tablet PO SCH ×3 (08:24→20:45)
[2018-01-10] MEDS: folic acid 1mg tablet PO SCH (08:24)
[2018-01-10] MEDS: pantoprazole 40mg Tablet.DR PO SCH (08:25)
[2018-01-10] MEDS: heparin, porcine 5000 units/ml vial SQ SCH ×2 (08:25→20:45)
[2018-01-10] MEDS: insulin Lispro (HumaLOG) vial - multi-dose SQ SCH (13:30)
[2018-01-10] MEDS: insulin glargine (Lantus) pen - multi-dose SQ SCH (20:49)
[2018-01-11] MEDS: albuterol 2.5 MG/3 ML nebule NEB SCH ×3 (02:44→14:56)
[2018-01-11 03:00] VITALS: BP 125/40
[2018-01-11 05:27] LABS: BASOPHILS % (AUTO) 0.5 % (0-1); EOSINOPHILS # (AUTO) 0.1 X10'3 (0-0.9); EOSINOPHILS % (AUTO) 2.2 % (0-6); HEMATOCRIT 24.5 % (35.0-45.0); HEMOGLOBIN 8.5 g/dl (12.0-16.0); LYMPHOCYTES % (AUTO) 15.8 % (21-51); MEAN CORPUSCULAR HEMOGLOBIN 32.2 PG (27.0-31.0); MEAN CORPUSCULAR HGB CONC 34.7 % (33.0-36.5); MEAN CORPUSCULAR VOLUME 92.8 FL (78-98); MEAN PLATELET VOLUME 8.1 FL (7.4-10.4); MONOCYTES # (AUTO) 0.9 X10'3 (0-0.9); MONOCYTES % (AUTO) 13.6 % (2-12); NEUTROPHILS # (AUTO) 4.5 X10'3 (1.8-7.7); NEUTROPHILS % (AUTO) 67.9 % (42-75); PLATELET COUNT 103 X10'3 (140-440); RED BLOOD COUNT 2.65 X10'6 (4.20-5.60); RED CELL DISTRIBUTION WIDTH 14.4 % (11.5-14.5); WHITE BLOOD COUNT 6.6 X10'3 (4.5-11.0)
[2018-01-11 06:00] VITALS: BP 123/81
[2018-01-11 06:43] LABS: ALANINE AMINOTRANSFERASE 22 U/L (12-78); ALBUMIN 2.2 G/DL (3.4-5.0); ALBUMIN/GLOBULIN RATIO 0.6 (1.1-1.5); ALKALINE PHOSPHATASE 96 IU/L (46-116); ANION GAP 11 (8-16); ASPARTATE AMINO TRANSFERASE 13 U/L (10-37); BILIRUBIN,TOTAL 0.4 MG/DL (0.1-1.0); BLOOD UREA NITROGEN 62 MG/DL (7-18); BUN/CREATININE RATIO 17.3 (6.6-38.0); CALCIUM 8.6 MG/DL (8.5-10.1); CHLORIDE 97 MMOL/L (99-107); CREATININE 3.59 MG/DL (0.40-0.90); GLUCOSE 145 MG/DL (70-104); MAGNESIUM 1.8 MG/DL (1.5-2.4); PHOSPHORUS 3.4 MG/DL (2.3-4.5); SODIUM 135 MMOL/L (135-145); TOTAL CARBON DIOXIDE 27.1 MMOL/L (24-32); eGFR 12 ML/MIN
[2018-01-11] MEDS ORDERED: LIDOcaine 1% (10mg/ml) 2ml vial SQ ONE ×2 (08:00→14:20)
[2018-01-11] MEDS ORDERED: heparin 1,000 units/ml 10ml inj IV ONE (08:00)
[2018-01-11] MEDS ORDERED: normal saline 1000ml 250 ML IV PRN (08:00)
[2018-01-11] MEDS ORDERED: epoetin 20,000 units/ml inj IV ONE (08:00)
[2018-01-11] MEDS ORDERED: heparin 1,000unit/ml 10ml vial 10 ML IV ONE (08:00)
[2018-01-11] MEDS: lactobacillus rhamnosus 10,000 MMU CELLS/CAPSULE PO SCH ×2 (08:24→21:13)
[2018-01-11] MEDS: heparin, porcine 5000 units/ml vial SQ SCH ×2 (08:25→21:12)
[2018-01-11] MEDS: budesonide 0.5mg/2ml UD nebule IH SCH ×2 (08:25→19:28)
[2018-01-11] MEDS: folic acid/vitamin B complex w/vitamin C 0.8mg tablet PO SCH (08:25)
[2018-01-11] MEDS: aspirin 81mg tablet.DR PO SCH (08:25)
[2018-01-11] MEDS: carVEDilol 3.125mg tablet PO SCH ×2 (08:25→21:12)
[2018-01-11] MEDS: levoTHYROXINE 25mcg tablet PO SCH (08:26)
[2018-01-11] MEDS: folic acid 1mg tablet PO SCH (08:26)
[2018-01-11] MEDS: docusate sod 100mg capsule PO SCH ×2 (08:26→21:12)
[2018-01-11] MEDS: furosemide 40mg tablet PO SCH ×3 (08:26→21:12)
[2018-01-11] MEDS: pantoprazole 40mg Tablet.DR PO SCH (08:27)
[2018-01-11] MEDS: isosorbide mononitrate 30mg tab.SR.24H PO SCH (08:28)
[2018-01-11] MEDS: insulin Lispro (HumaLOG) vial - multi-dose SQ SCH (08:48)
[2018-01-11 11:00] VITALS: BP 122/82
[2018-01-11 15:00] VITALS: BP 130/48
[2018-01-11] MEDS: albuterol 2.5 MG/3 ML nebule IH SCH ×3 (15:00→23:24)
[2018-01-11] MEDS: guaiFENesin ER 600mg tablet PO SCH ×2 (15:53→21:13)
[2018-01-11 19:00] VITALS: BP 122/53
[2018-01-11] MEDS: insulin glargine (Lantus) pen - multi-dose SQ SCH (21:19)
[2018-01-11 23:00] VITALS: BP 124/50
[2018-01-12 03:00] VITALS: BP 115/42
[2018-01-12] MEDS: albuterol 2.5 MG/3 ML nebule IH SCH ×6 (03:42→23:11)
[2018-01-12 04:15] LABS: BASOPHILS # (AUTO) 0.1 X10'3 (0-0.2); BASOPHILS % (AUTO) 0.6 % (0-1); EOSINOPHILS # (AUTO) 0.2 X10'3 (0-0.9); EOSINOPHILS % (AUTO) 2.2 % (0-6); HEMATOCRIT 25.9 % (35.0-45.0); HEMOGLOBIN 8.8 g/dl (12.0-16.0); LYMPHOCYTES # (AUTO) 1.4 X10'3 (1.1-4.8); MEAN CORPUSCULAR HEMOGLOBIN 32.2 PG (27.0-31.0); MEAN CORPUSCULAR HGB CONC 34.2 % (33.0-36.5); MEAN CORPUSCULAR VOLUME 94.3 FL (78-98); MEAN PLATELET VOLUME 8.6 FL (7.4-10.4); MONOCYTES # (AUTO) 1.2 X10'3 (0-0.9); MONOCYTES % (AUTO) 14.1 % (2-12); NEUTROPHILS # (AUTO) 5.7 X10'3 (1.8-7.7); NEUTROPHILS % (AUTO) 67.1 % (42-75); PLATELET COUNT 103 X10'3 (140-440); RED BLOOD COUNT 2.74 X10'6 (4.20-5.60); RED CELL DISTRIBUTION WIDTH 14.3 % (11.5-14.5); WHITE BLOOD COUNT 8.5 X10'3 (4.5-11.0)
[2018-01-12 04:53] LABS: ALANINE AMINOTRANSFERASE 21 U/L (12-78); ALBUMIN 2.3 G/DL (3.4-5.0); ALBUMIN/GLOBULIN RATIO 0.6 (1.1-1.5); ALKALINE PHOSPHATASE 89 IU/L (46-116); ANION GAP 8 (8-16); ASPARTATE AMINO TRANSFERASE 14 U/L (10-37); BILIRUBIN,TOTAL 0.6 MG/DL (0.1-1.0); BLOOD UREA NITROGEN 25 MG/DL (7-18); BUN/CREATININE RATIO 10.6 (6.6-38.0); CALCIUM 8.5 MG/DL (8.5-10.1); CHLORIDE 98 MMOL/L (99-107); CREATININE 2.35 MG/DL (0.40-0.90); GLUCOSE 80 MG/DL (70-104); MAGNESIUM 1.7 MG/DL (1.5-2.4); POTASSIUM 3.6 MMOL/L (3.5-5.1); SODIUM 136 MMOL/L (135-145); TOTAL CARBON DIOXIDE 29.8 MMOL/L (24-32); TOTAL PROTEIN 6.2 G/DL (6.4-8.2); eGFR 20 ML/MIN
[2018-01-12 06:00] VITALS: BP 116/47
[2018-01-12] MEDS: levoTHYROXINE 25mcg tablet PO SCH (07:00)
[2018-01-12] MEDS: lactobacillus rhamnosus 10,000 MMU CELLS/CAPSULE PO SCH ×2 (08:00→21:17)
[2018-01-12] MEDS: furosemide 40mg tablet PO SCH ×3 (08:00→21:17)
[2018-01-12] MEDS: docusate sod 100mg capsule PO SCH ×2 (08:00→20:00)
[2018-01-12] MEDS: pantoprazole 40mg Tablet.DR PO SCH (08:00)
[2018-01-12] MEDS: isosorbide mononitrate 30mg tab.SR.24H PO SCH (08:00)
[2018-01-12] MEDS: guaiFENesin ER 600mg tablet PO SCH ×2 (08:00→21:18)
[2018-01-12] MEDS: heparin, porcine 5000 units/ml vial SQ SCH ×2 (08:00→21:17)
[2018-01-12] MEDS: folic acid 1mg tablet PO SCH (08:00)
[2018-01-12] MEDS: folic acid/vitamin B complex w/vitamin C 0.8mg tablet PO SCH (08:00)
[2018-01-12] MEDS: aspirin 81mg tablet.DR PO SCH (08:00)
[2018-01-12] MEDS: carVEDilol 3.125mg tablet PO SCH ×2 (08:00→21:18)
[2018-01-12 11:00] VITALS: BP 110/42
[2018-01-12 15:00] VITALS: BP 127/46
[2018-01-12 19:00] VITALS: BP 119/37
[2018-01-12] MEDS: budesonide 0.5mg/2ml UD nebule IH SCH (19:10)
[2018-01-12] MEDS: insulin glargine (Lantus) pen - multi-dose SQ SCH (21:00)
[2018-01-12 23:00] VITALS: BP 129/50
[2018-01-13] VITALS (7 sets, daily range): BP systolic 98–140; BP diastolic 52–72
[2018-01-13] MEDS: albuterol 2.5 MG/3 ML nebule IH SCH ×6 (02:59→23:33)
[2018-01-13 05:36] LABS: BASOPHILS % (AUTO) 0.5 % (0-1); EOSINOPHILS # (AUTO) 0.1 X10'3 (0-0.9); EOSINOPHILS % (AUTO) 2.4 % (0-6); HEMATOCRIT 24.6 % (35.0-45.0); HEMOGLOBIN 8.7 g/dl (12.0-16.0); LYMPHOCYTES # (AUTO) 1.1 X10'3 (1.1-4.8); LYMPHOCYTES % (AUTO) 18.3 % (21-51); MEAN CORPUSCULAR HEMOGLOBIN 32.8 PG (27.0-31.0); MEAN CORPUSCULAR HGB CONC 35.4 % (33.0-36.5); MEAN CORPUSCULAR VOLUME 92.4 FL (78-98); MEAN PLATELET VOLUME 8.4 FL (7.4-10.4); MONOCYTES # (AUTO) 1.3 X10'3 (0-0.9); MONOCYTES % (AUTO) 22.3 % (2-12); NEUTROPHILS # (AUTO) 3.3 X10'3 (1.8-7.7); NEUTROPHILS % (AUTO) 56.5 % (42-75); PLATELET COUNT 123 X10'3 (140-440); RED BLOOD COUNT 2.66 X10'6 (4.20-5.60); WHITE BLOOD COUNT 5.9 X10'3 (4.5-11.0)
[2018-01-13 05:51] LABS: ALANINE AMINOTRANSFERASE 23 U/L (12-78); ALBUMIN 2.4 G/DL (3.4-5.0); ALBUMIN/GLOBULIN RATIO 0.6 (1.1-1.5); ALKALINE PHOSPHATASE 86 IU/L (46-116); ANION GAP 11 (8-16); ASPARTATE AMINO TRANSFERASE 16 U/L (10-37); BILIRUBIN,TOTAL 0.6 MG/DL (0.1-1.0); BLOOD UREA NITROGEN 38 MG/DL (7-18); BUN/CREATININE RATIO 11.9 (6.6-38.0); CALCIUM 8.6 MG/DL (8.5-10.1); CHLORIDE 96 MMOL/L (99-107); CREATININE 3.19 MG/DL (0.40-0.90); GLUCOSE 156 MG/DL (70-104); MAGNESIUM 1.7 MG/DL (1.5-2.4); PHOSPHORUS 3.1 MG/DL (2.3-4.5); POTASSIUM 3.9 MMOL/L (3.5-5.1); SODIUM 133 MMOL/L (135-145); TOTAL CARBON DIOXIDE 26.4 MMOL/L (24-32); TOTAL PROTEIN 6.2 G/DL (6.4-8.2); eGFR 14 ML/MIN
[2018-01-13 06:25] LABS: BANDS% (MANUAL) 1 % (0-10); BASOPHILS % (MANUAL) 1 % (0-1); EOSINOPHILS % (MANUAL) 2 % (0-6); LYMPHOCYTES % (MANUAL) 16 % (21-51); METAMYLEOCYTES% (MANUAL) 1 % (0-0); MONOCYTES % (MANUAL) 17 % (2-12); NEUTROPHILS % (MANUAL) 62 % (42-75); NUCLEATED RED BLOOD CELLS 1 /100WBC (0-0); PLATELET ESTIMATE DECREASED; TOTAL CELLS COUNTED 100
[2018-01-13 06:26] LABS: ANISOCYTOSIS 1+; LARGE PLATELETS FEW; POLYCHROMASIA 1+; TOXIC GRANULATION 1+
[2018-01-13] MEDS: budesonide 0.5mg/2ml UD nebule IH SCH ×2 (07:06→19:55)
[2018-01-13] MEDS: isosorbide mononitrate 30mg tab.SR.24H PO SCH (08:00)
[2018-01-13] MEDS: carVEDilol 3.125mg tablet PO SCH ×2 (08:00→20:00)
[2018-01-13] MEDS: furosemide 40mg tablet PO SCH ×3 (08:00→20:47)
[2018-01-13] MEDS ORDERED: LIDOcaine 1% (10mg/ml) 2ml vial SQ ONE (08:00)
[2018-01-13] MEDS ORDERED: heparin 1,000 units/ml 10ml inj IV ONE (08:00)
[2018-01-13] MEDS ORDERED: epoetin 20,000 units/ml inj IV ONE (08:00)
[2018-01-13] MEDS: levoTHYROXINE 25mcg tablet PO SCH (09:27)
[2018-01-13] MEDS: pantoprazole 40mg Tablet.DR PO SCH (09:28)
[2018-01-13] MEDS: docusate sod 100mg capsule PO SCH ×2 (09:28→20:47)
[2018-01-13] MEDS: folic acid 1mg tablet PO SCH (09:28)
[2018-01-13] MEDS: aspirin 81mg tablet.DR PO SCH (09:28)
[2018-01-13] MEDS: guaiFENesin ER 600mg tablet PO SCH ×2 (09:29→20:46)
[2018-01-13] MEDS: lactobacillus rhamnosus 10,000 MMU CELLS/CAPSULE PO SCH ×2 (09:29→21:00)
[2018-01-13] MEDS: folic acid/vitamin B complex w/vitamin C 0.8mg tablet PO SCH (09:29)
[2018-01-13] MEDS: heparin, porcine 5000 units/ml vial SQ SCH ×2 (09:30→20:47)
[2018-01-13] MEDS ORDERED: vancomycin/NS 1 GM ADD-VANTAGE 250 ML IV PRN (16:50)
[2018-01-13] MEDS: ondansetron/PF 4mg/2ml inj IV PRN ×2 (16:51→23:12)
[2018-01-13] MEDS: albuterol 2.5 MG/3 ML nebule NEB PRN (18:07)
[2018-01-13] MEDS: ceftazidime 1000mg in D5W 50ml 50 ML IV SCH (19:00)
[2018-01-13] MEDS: insulin glargine (Lantus) pen - multi-dose SQ SCH (21:36)
[2018-01-13] MEDS: insulin Lispro (HumaLOG) vial - multi-dose SQ SCH (21:37)
[2018-01-14] VITALS (7 sets, daily range): BP systolic 102–139; BP diastolic 47–90
[2018-01-14] MEDS: albuterol 2.5 MG/3 ML nebule IH SCH ×6 (03:27→22:39)
[2018-01-14 05:45] LABS: HEMATOCRIT 27.1 % (35.0-45.0); HEMOGLOBIN 9.1 g/dl (12.0-16.0); MEAN CORPUSCULAR HEMOGLOBIN 32.1 PG (27.0-31.0); MEAN CORPUSCULAR HGB CONC 33.8 % (33.0-36.5); MEAN CORPUSCULAR VOLUME 94.9 FL (78-98); MEAN PLATELET VOLUME 9.1 FL (7.4-10.4); PLATELET COUNT 161 X10'3 (140-440); RED BLOOD COUNT 2.85 X10'6 (4.20-5.60); RED CELL DISTRIBUTION WIDTH 14.1 % (11.5-14.5); WHITE BLOOD COUNT 8.5 X10'3 (4.5-11.0)
[2018-01-14 05:54] LABS: ALANINE AMINOTRANSFERASE 40 U/L (12-78); ALBUMIN 2.4 G/DL (3.4-5.0); ALBUMIN/GLOBULIN RATIO 0.6 (1.1-1.5); ALKALINE PHOSPHATASE 118 IU/L (46-116); ANION GAP 7 (8-16); ASPARTATE AMINO TRANSFERASE 29 U/L (10-37); BILIRUBIN,TOTAL 0.5 MG/DL (0.1-1.0); BLOOD UREA NITROGEN 23 MG/DL (7-18); BUN/CREATININE RATIO 9.4 (6.6-38.0); CALCIUM 8.7 MG/DL (8.5-10.1); CHLORIDE 98 MMOL/L (99-107); CREATININE 2.44 MG/DL (0.40-0.90); GLUCOSE 160 MG/DL (70-104); MAGNESIUM 1.8 MG/DL (1.5-2.4); PHOSPHORUS 3.6 MG/DL (2.3-4.5); POTASSIUM 4.5 MMOL/L (3.5-5.1); SODIUM 135 MMOL/L (135-145); TOTAL CARBON DIOXIDE 29.7 MMOL/L (24-32); TOTAL PROTEIN 6.3 G/DL (6.4-8.2); eGFR 19 ML/MIN
[2018-01-14 06:23] LABS: BANDS% (MANUAL) 3 % (0-10); NEUTROPHILS % (MANUAL) 58 % (42-75); TOTAL CELLS COUNTED 100
[2018-01-14 06:24] LABS: BASOPHILS % (MANUAL) 1 % (0-1); LYMPHOCYTES % (MANUAL) 22 % (21-51); METAMYLEOCYTES% (MANUAL) 3 % (0-0); MONOCYTES % (MANUAL) 16 % (2-12); NUCLEATED RED BLOOD CELLS 7 /100WBC (0-0); PLATELET ESTIMATE NORMAL
[2018-01-14 06:25] LABS: ANISOCYTOSIS 1+
[2018-01-14] MEDS: budesonide 0.5mg/2ml UD nebule IH SCH ×2 (07:11→19:00)
[2018-01-14] MEDS: furosemide 40mg tablet PO SCH ×3 (08:11→21:08)
[2018-01-14] MEDS: pantoprazole 40mg Tablet.DR PO SCH (08:11)
[2018-01-14] MEDS: acetaminophen 325mg tablet PO PRN (08:11)
[2018-01-14] MEDS: folic acid 1mg tablet PO SCH (08:13)
[2018-01-14] MEDS: docusate sod 100mg capsule PO SCH ×2 (08:13→19:42)
[2018-01-14] MEDS: aspirin 81mg tablet.DR PO SCH (08:13)
[2018-01-14] MEDS: ceftazidime 1000mg in D5W 50ml 50 ML IV SCH (08:13)
[2018-01-14] MEDS: folic acid/vitamin B complex w/vitamin C 0.8mg tablet PO SCH (08:42)
[2018-01-14] MEDS: lactobacillus rhamnosus 10,000 MMU CELLS/CAPSULE PO SCH ×2 (08:43→19:42)
[2018-01-14] MEDS: levoTHYROXINE 25mcg tablet PO SCH (08:43)
[2018-01-14] MEDS: guaiFENesin ER 600mg tablet PO SCH ×2 (08:44→19:41)
[2018-01-14] MEDS: heparin, porcine 5000 units/ml vial SQ SCH ×2 (08:45→19:41)
[2018-01-14] MEDS: insulin Lispro (HumaLOG) vial - multi-dose SQ SCH ×3 (08:47→19:37)
[2018-01-14] MEDS ORDERED: vancomycin/NS 1 GM ADD-VANTAGE 250 ML IV ONE (08:59)
[2018-01-14] MEDS ORDERED: azithromycin/NS 500mg/250ml 250 ML IV ONE (10:50)
[2018-01-14] MEDS: carVEDilol 3.125mg tablet PO SCH ×2 (11:03→19:42)
[2018-01-14] MEDS: isosorbide mononitrate 30mg tab.SR.24H PO SCH (11:03)
[2018-01-14 12:01] LABS: CLARITY,URINE CLOUDY (Clear); COLOR,URINE YELLOW (Yellow); GLUCOSE, URINE NEGATIVE (Neg); KETONES,URINE NEGATIVE (Neg); LEUKOCYTE ESTERASE ,URINE SMALL (Neg); NITRITES, URINE NEGATIVE (Neg); OCCULT BLOOD,URINE NEGATIVE (Neg); PH,URINE 5.5 (4.8-8.0); PROTEIN,URINE 30 mg/dl (Neg); UROBILINOGEN,URINE 0.2 E.U/dL (0.2-1.0)
[2018-01-14 12:06] LABS: UA COLLECTION TYPE CLN CATCH MIDSTREAM
[2018-01-14 12:34] LABS: HYALINE CASTS 0-3 /LPF (NEGATIVE); SQUAMOUS EPITHELIAL CELL,UR MANY /LPF (FEW); TRANSITIONAL EPI CELLS,URINE MANY /HPF
[2018-01-14 12:35] LABS: BACTERIA,URINE 1+ /HPF (Neg); RBC,URINE 0-2 /HPF (0-2); WBC,URINE 0-4 /HPF (0-4)
[2018-01-14 13:23] LABS: HBSAG SCREEN Negative (Negative)
[2018-01-14] MEDS: albuterol 2.5 MG/3 ML nebule NEB PRN (13:23)
[2018-01-14 13:30] LABS: ABG BASE EXCESS 2.7 mmol/L (-2.0-3.0); ABG HCO3 27.1 mmol/L (22.0-26.0); ABG OXYGEN SATURATION 98.2 % (95-98); ABG PCO2 (T) 40.9 mmHg (32.0-45.0); ABG PH (T) 7.439 (7.350-7.450); ABG PO2 (T) 147.3 mmHg (83-108); FCOHb 0.1 % (0.5-1.5); FLOW 2 L/min; FMetHb 0.3 % (0.3-1.12); FO2Hb 97.8 % (94-100); TOTAL HEMOGLOBIN 9.1 G/dl (12.0-16.0)
[2018-01-14] MEDS ORDERED: methylPREDNISolone sod succ/PF 40mg inj. IV SCH (14:00)
[2018-01-14] MEDS: ondansetron/PF 4mg/2ml inj IV PRN (15:14)
[2018-01-14] MEDS: insulin glargine (Lantus) pen - multi-dose SQ SCH (21:00)
[2018-01-14 22:22] LABS: PROTHROMBIN TIME 10.7 SECONDS (9.0-12.0)
[2018-01-14] MEDS ORDERED: furosemide 40mg/4ml inj ONE (23:22)
[2018-01-14] MEDS ORDERED: furosemide 40mg/4ml inj IV ONE (23:25)
[2018-01-14 23:26] LABS: ABG BASE EXCESS 1.6 mmol/L (-2.0-3.0); ABG HCO3 26.1 mmol/L (22.0-26.0); ABG OXYGEN SATURATION 92.2 % (95-98); ABG PCO2 (T) 40.5 mmHg (32.0-45.0); ABG PH (T) 7.428 (7.350-7.450); ABG PO2 (T) 66.2 mmHg (83-108); FCOHb 0.2 % (0.5-1.5); FLOW 1 L/min; FMetHb 0.3 % (0.3-1.12); FO2Hb 91.7 % (94-100); PATIENT TEMPERATURE 37.1; RESPIRATORY RATE (OBSERVED) 18 b/min; TOTAL HEMOGLOBIN 9.2 G/dl (12.0-16.0)
[2018-01-15] VITALS (11 sets, daily range): BP systolic 107–141; BP diastolic 43–73
[2018-01-15] MEDS: VANCOMYCIN LEVEL IV SCH (03:00)
[2018-01-15] MEDS: albuterol 2.5 MG/3 ML nebule IH SCH ×6 (03:11→23:30)
[2018-01-15 06:31] LABS: BASOPHILS % (AUTO) 0.4 % (0-1); EOSINOPHILS # (AUTO) 0.3 X10'3 (0-0.9); HEMATOCRIT 26.8 % (35.0-45.0); HEMOGLOBIN 9.1 g/dl (12.0-16.0); LYMPHOCYTES % (AUTO) 15.3 % (21-51); MEAN CORPUSCULAR HEMOGLOBIN 32.1 PG (27.0-31.0); MEAN CORPUSCULAR HGB CONC 33.8 % (33.0-36.5); MEAN CORPUSCULAR VOLUME 94.9 FL (78-98); MEAN PLATELET VOLUME 8.7 FL (7.4-10.4); MONOCYTES # (AUTO) 1.1 X10'3 (0-0.9); NEUTROPHILS # (AUTO) 4.4 X10'3 (1.8-7.7); NEUTROPHILS % (AUTO) 63.3 % (42-75); PLATELET COUNT 196 X10'3 (140-440); RED BLOOD COUNT 2.82 X10'6 (4.20-5.60); RED CELL DISTRIBUTION WIDTH 15.1 % (11.5-14.5); WHITE BLOOD COUNT 6.9 X10'3 (4.5-11.0)
[2018-01-15 06:54] LABS: ALANINE AMINOTRANSFERASE 30 U/L (12-78); ALBUMIN 2.4 G/DL (3.4-5.0); ALBUMIN/GLOBULIN RATIO 0.6 (1.1-1.5); ALKALINE PHOSPHATASE 114 IU/L (46-116); ANION GAP 12 (8-16); ASPARTATE AMINO TRANSFERASE 19 U/L (10-37); BILIRUBIN,TOTAL 0.5 MG/DL (0.1-1.0); BLOOD UREA NITROGEN 40 MG/DL (7-18); BUN/CREATININE RATIO 11.8 (6.6-38.0); CALCIUM 8.6 MG/DL (8.5-10.1); CHLORIDE 99 MMOL/L (99-107); CREATININE 3.39 MG/DL (0.40-0.90); GLUCOSE 137 MG/DL (70-104); MAGNESIUM 1.9 MG/DL (1.5-2.4); PHOSPHORUS 4.3 MG/DL (2.3-4.5); POTASSIUM 4.1 MMOL/L (3.5-5.1); SODIUM 136 MMOL/L (135-145); TOTAL CARBON DIOXIDE 25.4 MMOL/L (24-32); TOTAL PROTEIN 6.2 G/DL (6.4-8.2); VANCOMYCIN,RANDOM 15.4 UG/ML; eGFR 13 ML/MIN
[2018-01-15] MEDS: budesonide 0.5mg/2ml UD nebule IH SCH ×2 (07:17→18:57)
[2018-01-15] MEDS: furosemide 40mg tablet PO SCH ×3 (07:55→20:12)
[2018-01-15] MEDS: levoTHYROXINE 25mcg tablet PO SCH (07:55)
[2018-01-15] MEDS: pantoprazole 40mg Tablet.DR PO SCH (07:56)
[2018-01-15] MEDS: heparin, porcine 5000 units/ml vial SQ SCH ×2 (07:57→20:13)
[2018-01-15] MEDS: folic acid/vitamin B complex w/vitamin C 0.8mg tablet PO SCH (07:58)
[2018-01-15] MEDS: lactobacillus rhamnosus 10,000 MMU CELLS/CAPSULE PO SCH ×2 (07:58→20:12)
[2018-01-15] MEDS: folic acid 1mg tablet PO SCH (07:58)
[2018-01-15] MEDS: aspirin 81mg tablet.DR PO SCH (08:00)
[2018-01-15] MEDS: isosorbide mononitrate 30mg tab.SR.24H PO SCH (08:00)
[2018-01-15] MEDS: docusate sod 100mg capsule PO SCH ×2 (08:00→20:12)
[2018-01-15] MEDS: ceftazidime 1000mg in D5W 50ml 50 ML IV SCH (08:00)
[2018-01-15] MEDS ORDERED: normal saline 1000ml 250 ML IV PRN (08:00)
[2018-01-15] MEDS ORDERED: heparin 1,000 units/ml 10ml inj IV ONE (08:00)
[2018-01-15] MEDS ORDERED: LIDOcaine 1% (10mg/ml) 2ml vial SQ ONE (08:00)
[2018-01-15] MEDS ORDERED: epoetin 20,000 units/ml inj IV ONE (08:00)
[2018-01-15] MEDS: carVEDilol 3.125mg tablet PO SCH ×2 (08:00→20:12)
[2018-01-15] MEDS: guaiFENesin ER 600mg tablet PO SCH ×2 (08:00→20:12)
[2018-01-15] MEDS: insulin Lispro (HumaLOG) vial - multi-dose SQ SCH ×2 (09:10→19:52)
[2018-01-15] MEDS: ondansetron/PF 4mg/2ml inj IV PRN (20:12)
[2018-01-15] MEDS: insulin glargine (Lantus) pen - multi-dose SQ SCH (21:00)
[2018-01-16 03:00] VITALS: BP 104/46
[2018-01-16] MEDS: VANCOMYCIN LEVEL IV SCH (03:00)
[2018-01-16] MEDS: albuterol 2.5 MG/3 ML nebule IH SCH ×6 (03:20→23:13)
[2018-01-16 06:00] VITALS: BP 134/54
[2018-01-16] MEDS: budesonide 0.5mg/2ml UD nebule IH SCH ×2 (06:53→19:17)
[2018-01-16] MEDS: ceftazidime 1000mg in D5W 50ml 50 ML IV SCH (07:42)
[2018-01-16] MEDS: nystatin 15 GM powder TP SCH ×3 (07:50→21:27)
[2018-01-16] MEDS: levoTHYROXINE 25mcg tablet PO SCH (07:51)
[2018-01-16] MEDS: guaiFENesin ER 600mg tablet PO SCH ×2 (07:51→21:03)
[2018-01-16] MEDS: lactobacillus rhamnosus 10,000 MMU CELLS/CAPSULE PO SCH ×2 (07:51→21:24)
[2018-01-16] MEDS: folic acid 1mg tablet PO SCH (07:51)
[2018-01-16] MEDS: folic acid/vitamin B complex w/vitamin C 0.8mg tablet PO SCH (07:51)
[2018-01-16] MEDS: pantoprazole 40mg Tablet.DR PO SCH (07:52)
[2018-01-16] MEDS: docusate sod 100mg capsule PO SCH ×2 (07:52→21:03)
[2018-01-16] MEDS: furosemide 40mg tablet PO SCH ×3 (07:52→21:03)
[2018-01-16] MEDS: aspirin 81mg tablet.DR PO SCH (07:52)
[2018-01-16] MEDS: carVEDilol 3.125mg tablet PO SCH ×2 (07:53→21:03)
[2018-01-16] MEDS: heparin, porcine 5000 units/ml vial SQ SCH ×2 (07:56→20:00)
[2018-01-16] MEDS ORDERED: vancomycin/NS 1 GM ADD-VANTAGE 250 ML IV ONE (08:30)
[2018-01-16 11:33] VITALS: BP 134/69
[2018-01-16] MEDS: isosorbide mononitrate 30mg tab.SR.24H PO SCH (11:55)
[2018-01-16] MEDS: insulin Lispro (HumaLOG) vial - multi-dose SQ SCH ×2 (14:14→19:03)
[2018-01-16 15:00] VITALS: BP 127/49
[2018-01-16 19:00] VITALS: BP 138/53
[2018-01-16] MEDS: ondansetron/PF 4mg/2ml inj IV PRN (19:08)
[2018-01-16] MEDS: insulin glargine (Lantus) pen - multi-dose SQ SCH (21:23)
[2018-01-16 23:00] VITALS: BP 125/51
[2018-01-17] MEDS: albuterol 2.5 MG/3 ML nebule IH SCH ×6 (02:59→23:05)
[2018-01-17 03:00] VITALS: BP 115/53
[2018-01-17] MEDS: VANCOMYCIN LEVEL IV SCH (03:00)
[2018-01-17 06:36] LABS: VANCOMYCIN,RANDOM 26.5 UG/ML
[2018-01-17 07:00] VITALS: BP 131/54
[2018-01-17] MEDS: budesonide 0.5mg/2ml UD nebule IH SCH ×2 (07:00→19:44)
[2018-01-17 07:58] LABS: ALBUMIN 2.3 G/DL (3.4-5.0); ANION GAP 11 (8-16); BLOOD UREA NITROGEN 30 MG/DL (7-18); CALCIUM 8.3 MG/DL (8.5-10.1); CHLORIDE 98 MMOL/L (99-107); CREATININE 3.34 MG/DL (0.40-0.90); GLUCOSE 87 MG/DL (70-104); POTASSIUM 3.8 MMOL/L (3.5-5.1); SODIUM 136 MMOL/L (135-145); eGFR 13 ML/MIN
[2018-01-17] MEDS: heparin, porcine 5000 units/ml vial SQ SCH ×2 (08:37→22:11)
[2018-01-17] MEDS: ceftazidime 1000mg in D5W 50ml 50 ML IV SCH (08:37)
[2018-01-17] MEDS: furosemide 40mg tablet PO SCH ×3 (08:37→22:07)
[2018-01-17] MEDS: aspirin 81mg tablet.DR PO SCH (08:37)
[2018-01-17] MEDS: docusate sod 100mg capsule PO SCH ×2 (08:38→22:08)
[2018-01-17] MEDS: levoTHYROXINE 25mcg tablet PO SCH (08:38)
[2018-01-17] MEDS: lactobacillus rhamnosus 10,000 MMU CELLS/CAPSULE PO SCH ×2 (08:38→22:08)
[2018-01-17] MEDS: carVEDilol 3.125mg tablet PO SCH ×2 (08:38→22:07)
[2018-01-17] MEDS: folic acid 1mg tablet PO SCH (08:38)
[2018-01-17] MEDS: isosorbide mononitrate 30mg tab.SR.24H PO SCH (08:38)
[2018-01-17] MEDS: pantoprazole 40mg Tablet.DR PO SCH (08:38)
[2018-01-17] MEDS: guaiFENesin ER 600mg tablet PO SCH ×2 (08:38→22:07)
[2018-01-17] MEDS: folic acid/vitamin B complex w/vitamin C 0.8mg tablet PO SCH (08:38)
[2018-01-17] MEDS: nystatin 15 GM powder TP SCH ×3 (08:39→22:14)
[2018-01-17 11:00] VITALS: BP 117/50
[2018-01-17] MEDS: predniSONE 20 mg tablet PO SCH (12:44)
[2018-01-17 15:00] VITALS: BP 155/64
[2018-01-17 19:00] VITALS: BP 131/52
[2018-01-17] MEDS: insulin Lispro (HumaLOG) vial - multi-dose SQ SCH ×2 (19:09→22:23)
[2018-01-17] MEDS: insulin glargine (Lantus) pen - multi-dose SQ SCH (22:22)
[2018-01-17 23:00] VITALS: BP 126/51
[2018-01-18 03:00] VITALS: BP 116/47
[2018-01-18] MEDS: VANCOMYCIN LEVEL IV SCH (03:00)
[2018-01-18] MEDS: albuterol 2.5 MG/3 ML nebule IH SCH ×6 (04:35→23:00)
[2018-01-18 06:07] LABS: BASOPHILS % (AUTO) 0.7 % (0-1); EOSINOPHILS % (AUTO) 0.3 % (0-6); HEMOGLOBIN 9.3 g/dl (12.0-16.0); LYMPHOCYTES # (AUTO) 0.6 X10'3 (1.1-4.8); LYMPHOCYTES % (AUTO) 13.4 % (21-51); MEAN CORPUSCULAR HEMOGLOBIN 31.6 PG (27.0-31.0); MEAN CORPUSCULAR HGB CONC 33.3 % (33.0-36.5); MEAN PLATELET VOLUME 9.2 FL (7.4-10.4); MONOCYTES # (AUTO) 0.3 X10'3 (0-0.9); MONOCYTES % (AUTO) 7.4 % (2-12); NEUTROPHILS # (AUTO) 3.6 X10'3 (1.8-7.7); NEUTROPHILS % (AUTO) 78.2 % (42-75); PLATELET COUNT 220 X10'3 (140-440); RED BLOOD COUNT 2.94 X10'6 (4.20-5.60); RED CELL DISTRIBUTION WIDTH 16.3 % (11.5-14.5); WHITE BLOOD COUNT 4.6 X10'3 (4.5-11.0)
[2018-01-18 06:58] VITALS: BP 136/91
[2018-01-18] MEDS: heparin, porcine 5000 units/ml vial SQ SCH ×2 (07:52→19:32)
[2018-01-18] MEDS: levoTHYROXINE 25mcg tablet PO SCH (07:53)
[2018-01-18] MEDS: isosorbide mononitrate 30mg tab.SR.24H PO SCH (07:54)
[2018-01-18] MEDS: predniSONE 20 mg tablet PO SCH (07:54)
[2018-01-18] MEDS: folic acid/vitamin B complex w/vitamin C 0.8mg tablet PO SCH (07:54)
[2018-01-18] MEDS: pantoprazole 40mg Tablet.DR PO SCH (07:54)
[2018-01-18] MEDS: guaiFENesin ER 600mg tablet PO SCH ×2 (07:55→19:34)
[2018-01-18] MEDS: docusate sod 100mg capsule PO SCH ×2 (07:56→19:33)
[2018-01-18] MEDS: folic acid 1mg tablet PO SCH (07:56)
[2018-01-18] MEDS: lactobacillus rhamnosus 10,000 MMU CELLS/CAPSULE PO SCH ×2 (07:56→19:35)
[2018-01-18] MEDS: aspirin 81mg tablet.DR PO SCH (07:56)
[2018-01-18] MEDS: carVEDilol 3.125mg tablet PO SCH ×2 (08:00→19:51)
[2018-01-18] MEDS: furosemide 40mg tablet PO SCH ×3 (08:00→21:00)
[2018-01-18] MEDS ORDERED: normal saline 1000ml 250 ML IV PRN (08:00)
[2018-01-18] MEDS ORDERED: LIDOcaine 1% (10mg/ml) 2ml vial SQ ONE (08:00)
[2018-01-18] MEDS: nystatin 15 GM powder TP SCH ×3 (08:00→21:00)
[2018-01-18] MEDS ORDERED: epoetin 20,000 units/ml inj IV ONE (08:00)
[2018-01-18] MEDS: ceftazidime 1000mg in D5W 50ml 50 ML IV SCH (08:00)
[2018-01-18] MEDS ORDERED: heparin 1,000 units/ml 10ml inj IV ONE (08:00)
[2018-01-18] MEDS: budesonide 0.5mg/2ml UD nebule IH SCH ×2 (09:00→19:47)
[2018-01-18 11:00] VITALS: BP 137/61
[2018-01-18] MEDS: insulin Lispro (HumaLOG) vial - multi-dose SQ SCH (13:45)
[2018-01-18] MEDS ORDERED: morphine 10mg/0.5ml (conc. morphine) oral syringe PO PRN (15:50)
[2018-01-18 19:00] VITALS: BP 105/46
[2018-01-18] MEDS: acetaminophen 325mg tablet PO PRN (19:32)
[2018-01-18] MEDS: sennosides/docusate sodium tablet PO SCH (19:34)
[2018-01-18] MEDS: insulin glargine (Lantus) pen - multi-dose SQ SCH (21:00)
[2018-01-19] MEDS: VANCOMYCIN LEVEL IV SCH (03:00)
[2018-01-19] MEDS: albuterol 2.5 MG/3 ML nebule IH SCH ×6 (03:41→23:05)
[2018-01-19 06:00] VITALS: BP 118/53
[2018-01-19] MEDS: docusate sod 100mg capsule PO SCH ×2 (08:00→20:00)
[2018-01-19] MEDS: sennosides/docusate sodium tablet PO SCH ×2 (08:00→21:02)
[2018-01-19] MEDS: budesonide 0.5mg/2ml UD nebule IH SCH ×2 (09:00→19:24)
[2018-01-19 09:12] LABS: ALBUMIN 2.4 G/DL (3.4-5.0); ANION GAP 10 (8-16); BLOOD UREA NITROGEN 21 MG/DL (7-18); BUN/CREATININE RATIO 7.2 (6.6-38.0); CALCIUM 8.2 MG/DL (8.5-10.1); CHLORIDE 96 MMOL/L (99-107); CREATININE 2.93 MG/DL (0.40-0.90); GLUCOSE 222 MG/DL (70-104); POTASSIUM 3.8 MMOL/L (3.5-5.1); SODIUM 134 MMOL/L (135-145); TOTAL CARBON DIOXIDE 28.1 MMOL/L (24-32); VANCOMYCIN,RANDOM 15.8 UG/ML; eGFR 15 ML/MIN
[2018-01-19] MEDS: guaiFENesin ER 600mg tablet PO SCH ×2 (09:54→21:01)
[2018-01-19] MEDS: levoTHYROXINE 25mcg tablet PO SCH (09:54)
[2018-01-19] MEDS: folic acid 1mg tablet PO SCH (09:54)
[2018-01-19] MEDS: lactobacillus rhamnosus 10,000 MMU CELLS/CAPSULE PO SCH ×2 (09:54→21:02)
[2018-01-19] MEDS: carVEDilol 3.125mg tablet PO SCH ×2 (09:54→21:03)
[2018-01-19] MEDS: isosorbide mononitrate 30mg tab.SR.24H PO SCH (09:54)
[2018-01-19] MEDS: aspirin 81mg tablet.DR PO SCH (09:54)
[2018-01-19] MEDS: predniSONE 20 mg tablet PO SCH (09:55)
[2018-01-19] MEDS: furosemide 40mg tablet PO SCH ×3 (09:55→21:01)
[2018-01-19] MEDS: pantoprazole 40mg Tablet.DR PO SCH (09:55)
[2018-01-19] MEDS: heparin, porcine 5000 units/ml vial SQ SCH ×2 (09:56→21:03)
[2018-01-19 10:00] VITALS: BP 115/35
[2018-01-19] MEDS: folic acid/vitamin B complex w/vitamin C 0.8mg tablet PO SCH (10:03)
[2018-01-19] MEDS: ceftazidime 1000mg in D5W 50ml 50 ML IV SCH (10:04)
[2018-01-19] MEDS: nystatin 15 GM powder TP SCH ×3 (10:06→21:09)
[2018-01-19] MEDS: insulin Lispro (HumaLOG) vial - multi-dose SQ SCH ×2 (13:14→19:09)
[2018-01-19] MEDS: insulin glargine (Lantus) pen - multi-dose SQ SCH (20:55)
[2018-01-19 22:21] VITALS: BP 131/63
[2018-01-20] MEDS: VANCOMYCIN LEVEL IV SCH (03:00)
[2018-01-20] MEDS: albuterol 2.5 MG/3 ML nebule IH SCH ×2 (03:15→10:20)
[2018-01-20] MEDS: levoTHYROXINE 25mcg tablet PO SCH (07:00)
[2018-01-20] MEDS: budesonide 0.5mg/2ml UD nebule IH SCH (07:52)
[2018-01-20] MEDS: ceftazidime 1000mg in D5W 50ml 50 ML IV SCH (08:52)
[2018-01-20] MEDS: lactobacillus rhamnosus 10,000 MMU CELLS/CAPSULE PO SCH (08:53)
[2018-01-20] MEDS: aspirin 81mg tablet.DR PO SCH (08:53)
[2018-01-20] MEDS: furosemide 40mg tablet PO SCH (08:53)
[2018-01-20] MEDS: folic acid/vitamin B complex w/vitamin C 0.8mg tablet PO SCH (08:53)
[2018-01-20] MEDS: folic acid 1mg tablet PO SCH (08:53)
[2018-01-20] MEDS: predniSONE 20 mg tablet PO SCH (08:53)
[2018-01-20] MEDS: heparin, porcine 5000 units/ml vial SQ SCH (08:53)
[2018-01-20] MEDS: docusate sod 100mg capsule PO SCH (08:54)
[2018-01-20] MEDS: isosorbide mononitrate 30mg tab.SR.24H PO SCH (08:54)
[2018-01-20] MEDS: pantoprazole 40mg Tablet.DR PO SCH (08:54)
[2018-01-20] MEDS: guaiFENesin ER 600mg tablet PO SCH (08:54)
[2018-01-20] MEDS: sennosides/docusate sodium tablet PO SCH (08:54)
[2018-01-20] MEDS: nystatin 15 GM powder TP SCH (08:54)
[2018-01-20] MEDS: carVEDilol 3.125mg tablet PO SCH (08:54)
== END 2018-01-20 13:05 | disposition hospice, home (50) | DRG 871 ==
LOC: ER 16:45 → ED HOLD 17:41 → PCU 3S 01-01 07:57 → ORTHO 4S 01-19 05:05
PROVIDERS: ADMIT Internal Medicine Critical Care Medicine; ATTEND Internal Medicine Critical Care Medicine
PROC: 3E0336Z Introduction of Nutritional Substance into Peripheral Vein, Percutaneous Approach (ICD-10-PCS; 2017-12-31)
PROC: 5A1D70Z Performance of Urinary Filtration, Intermittent, Less than 6 Hours Per Day (ICD-10-PCS; 2018-01-01)
PROC: 5A1D70Z Performance of Urinary Filtration, Intermittent, Less than 6 Hours Per Day (ICD-10-PCS; 2018-01-04)
PROC: 5A1D70Z Performance of Urinary Filtration, Intermittent, Less than 6 Hours Per Day (ICD-10-PCS; 2018-01-06)
PROC: 5A1D70Z Performance of Urinary Filtration, Intermittent, Less than 6 Hours Per Day (ICD-10-PCS; 2018-01-08)
PROC: 0DB68ZX Excision of Stomach, Via Natural or Artificial Opening Endoscopic, Diagnostic (ICD-10-PCS; 2018-01-08)
PROC: 5A1D70Z Performance of Urinary Filtration, Intermittent, Less than 6 Hours Per Day (ICD-10-PCS; 2018-01-11)
PROC: 5A1D70Z Performance of Urinary Filtration, Intermittent, Less than 6 Hours Per Day (ICD-10-PCS; 2018-01-13)
PROC: 5A09357 Assistance with Respiratory Ventilation, Less than 24 Consecutive Hours, Continuous Positive Airway Pressure (ICD-10-PCS; principal; 2018-01-15)
PROC: 5A1D70Z Performance of Urinary Filtration, Intermittent, Less than 6 Hours Per Day (ICD-10-PCS; 2018-01-15)
PROC: 5A1D70Z Performance of Urinary Filtration, Intermittent, Less than 6 Hours Per Day (ICD-10-PCS; 2018-01-18)
DX: A41.9 Sepsis, unspecified organism (principal); J18.1 Lobar pneumonia, unspecified organism; J96.01 Acute respiratory failure with hypoxia; E43 Unspecified severe protein-calorie malnutrition; I13.2 Hypertensive heart and chronic kidney disease with heart failure and with stage 5 chronic kidney disease, or end stage renal disease; I27.20 Pulmonary hypertension, unspecified; N18.6 End stage renal disease; E11.22 Type 2 diabetes mellitus with diabetic chronic kidney disease; E87.5 Hyperkalemia; E87.1 Hypo-osmolality and hyponatremia; Z68.1 Body mass index [BMI] 19.9 or less, adult; K92.1 Melena; I50.42 Chronic combined systolic (congestive) and diastolic (congestive) heart failure; J44.0 Chronic obstructive pulmonary disease with (acute) lower respiratory infection; J98.11 Atelectasis; D64.9 Anemia, unspecified; E03.9 Hypothyroidism, unspecified; K44.9 Diaphragmatic hernia without obstruction or gangrene; K29.70 Gastritis, unspecified, without bleeding; K29.80 Duodenitis without bleeding; I25.10 Atherosclerotic heart disease of native coronary artery without angina pectoris; K21.0 Gastro-esophageal reflux disease with esophagitis; R62.7 Adult failure to thrive; Z66 Do not resuscitate; Z51.5 Encounter for palliative care; Z95.1 Presence of aortocoronary bypass graft; Z95.5 Presence of coronary angioplasty implant and graft; Z99.2 Dependence on renal dialysis; Z99.81 Dependence on supplemental oxygen; Z90.722 Acquired absence of ovaries, bilateral; Z90.49 Acquired absence of other specified parts of digestive tract; Z90.710 Acquired absence of both cervix and uterus; Z79.899 Other long term (current) drug therapy; Z79.82 Long term (current) use of aspirin; Z85.820 Personal history of malignant melanoma of skin
CPT/HCPCS: 36415; 36600; 43239; 71045; 71250; 80048; 80053; 80202; 81001; 82272; 82803; 82948; 83036; 83735; 84100; 84145; 85018; 85025; 85027; 85610; 87070; 87340; 88305; 94640; 94660; 94760; 97034; 97110; 97116; 97162; 97530; 99285; A4620; A6212; A6213; A6402; A6449; G0257; G0500; J0713; J0885; J1644; J1815; J1940; J1956; J2020; J2250; J2405; J2543; J3010; J3370; J3490; J7030; J7512; J7626